=== PATIENT | female | born 1990 | race Caucasian/White ===

== ENCOUNTER 2016-04-29 14:54 | Emergency (ER) | payer MEDICAID, OTHER ==
[~2016-04-29] VITALS: Ht 167.6 cm; Wt 69.0 kg
[~2016-04-29 14:54] MED LIST: PREN1TAB49 PO
[2016-04-29 15:03] VITALS: Ht 167.6 cm; Wt 69.0 kg
[2016-04-29] MEDS ORDERED: IBUP800T25 PO (16:42)
[2016-04-29] MEDS ORDERED: PEN500 PO (16:42)
--- NOTE | 2016-04-29 18:41 | ERD ---
DATE OF SERVICE: HISTORY OF PRESENT ILLNESS: The patient is a 25-year-old female complaining of sore throat for 2 da ys. She states tactile fevers. She states it is worse at night. She has had body aches. She took medication, ibuprofen, yesterday, but no medication today. Has no runny nose. Has no cough. Her son has similar sore throat without cough and runny nose, and he has a fever. She has no chest pain , no shortness of breath, no abdominal pain, no vomiting, no headaches. PAST MEDICAL HISTORY: Denies medical problems. ALLERGIES: Denies allergies to medications. SURGICAL HISTORY: Denies. SOCIAL HISTORY: Denies. REVIEW OF SYSTEMS: A 12-point review of systems was done. Refer to HPI for positives. All other s ystems negative. PHYSICAL EXAMINATION VITAL SIGNS: Temperature is 99.1, pulse is 112, blood pressure 148/62, respiratory rate 18, O2 satu ration 99% on room air. Pain intensity 8/10. GENERAL: The patient is well-appearing, well-nourished, no acute distress. HEENT: Atraumatic. Conjunctivae are pink. Pupils equal, round, and reactive to light. There is no s cleral icterus. Tympanic membranes clear bilaterally. Oropharynx clear. No nystagmus or photophobia . Patient has erythematous tonsils bilaterally with questionable exudate. Uvula midline. No posteri or oropharynx. Positive cervical lymphadenopathy. TMs are within normal limits. No erythema or bu lging. No sinus pressure. Pupils equal, round, and reactive to light. No congestion noted around t he eyes. Extraocular movements intact. NECK: C-spine is soft and supple. There is no meningismus. There is no cervical lymphadenopathy. No JVD. No bruits. No goiter. CHEST: Clear to auscultation bilaterally. There are no rales, wheezes or rhonchi. HEART: Regular rate and rhythm. No murmurs, clicks, rubs or gallops. No S3 or S4. ABDOMEN: Soft, nontender and nondistended. Good bowel sounds. No rebound or guarding. No gross susan tonitis. No gross organomegaly or masses. No Cook sign or McBurney point tenderness. BACK: No midline or flank tenderness. EXTREMITIES: Equal pulses bilaterally. There is no peripheral clubbing, cyanosis or edema. No focal swelling or erythema. Full range of motion. Grossly neurovascularly intact. NEURO: Alert and oriented. Cranial nerves 2-12 intact. Motor strength in all 4 extremities with 5/5 strength. Sensation grossly intact. Normal speech and gait. Babinski negative. DTR 2+ throughout. SKIN: There is no apparent rash or petechia. The skin is warm and dry. HEMATOLOGIC AND LYMPHATIC: There is no evidence of excessive bruising or lymphedema. No gross cervi jordy, axillary, or inguinal lymphadenopathy. PSYCHIATRIC: The patient does not appear anxious or depressed. Normal orientation and judgment. DIAGNOSIS: Sore throat, possible strep. MEDICAL DECISION MAKING: The patient has a high Centor score. She will be treated for strep given that her son has similar symptoms and a fever at home. I have low suspicion for peritonsillar retro pharyngeal abscess. DISCHARGE: The patient is discharged stable. Patient is given a prescription for penicillin and ib uprofen, and told to follow up with primary care within 1-2 days for reevaluation. The patient was told if symptoms progress or worsen, to return to the ER. All other questions answered at time of d ischarge. Discharge summary given at the time of departure. Patient understood and complied with portia haile. Dictated By: OFE WELCH for ALLIE GONZALEZ/KATYA Conf#: [id number] DID#: [id number]
== END 2016-04-29 16:42 | disposition home or self-care (01) ==
LOC: E/R 14:54
DX: J02.9 Acute pharyngitis, unspecified (principal)
CPT/HCPCS: 99283

== ENCOUNTER 2017-02-07 19:29 | Emergency (ER) | payer OTHER ==
[~2017-02-07] VITALS: Ht 162.6 cm; Wt 73.6 kg
[~2017-02-07 19:29] MED LIST changes: +IBUP800T25 PO; +PENI500T PO
[2017-02-07 19:37] VITALS: Ht 162.6 cm; Wt 73.6 kg
--- NOTE | 2017-02-07 22:22 | RADRPT ---
PROCEDURE: XR Chest. CLINICAL INDICATION: Cough TECHNIQUE: Single frontal chest x-ray. COMPARISON: None. FINDINGS: The lungs are clear. No focal opacification is seen. The cardiomediastinal silhouette is unremarka ble. The osseous structures are unremarkable. IMPRESSION: 1. There is no acute cardiopulmonary process. RPTAT: PP .Inderjit Rivera MD, MD Date Time Electronically viewed and signed by .Inderjit Rivera MD, on 02/07/2017 22:22 .B/
[2017-02-07] MEDS ORDERED: LORA-186 PO (22:25)
[2017-02-07] MEDS ORDERED: ACET325T33 PO (22:39)
--- NOTE | 2017-02-07 23:08 | ERD ---
ER Documentation Chief Complaint Chief Complaint cough x 1 month HPI A 26-year-old female presenting to emergency department complaining of cough on and off for the past month. Patient presents today stating that she feels like she has chest tightness for the past couple days. She denies any shortness of breath, chest pain. She denies having any medications for this. Denies fevers ROS All systems reviewed and are negative except as per history of present illness. Medications Home Meds Active Scripts Acetaminophen* (Tylenol*) 325 Mg Tablet, 1 TAB PO Q6 Y for PAIN AND OR ELEVATED TEMP, #20 TAB Prov:JOSE ANGEL DEL CID PA-C 02/07/17 Loratadine* (Claritin*) 10 Mg Tablet, 10 MG PO DAILY, #20 TAB Prov:JOSE ANGEL DEL CID PA-C 02/07/17 Ibuprofen* (Motrin*) 800 Mg Tab, 800 MG PO Q6, #30 TAB Prov:CARL DOMINGUEZ PA-C 04/29/16 Penicillin V Potassium* (Penicillin V K*) 500 Mg Tab, 500 MG PO QID for 7 Days, TAB Prov:CARL DOMINGUEZ PA-C 04/29/16 Reported Medications Vits W-Ca,Fe,Fa(<1MG) () 1 Tab Tablet, PO DAILY 03/19/11 Allergies Allergies: Coded Allergies: No Known Allergy (Unverified , 03/19/11) PMhx/Soc History of Surgery: No Anesthesia Reaction: No Hx Neurological Disorder: No Hx Respiratory Disorders: No Hx Cardiac Disorders: No Hx Psychiatric Problems: No Hx Miscellaneous Medical Probl: No Hx Alcohol Use: No Hx Substance Use: No Hx Tobacco Use: No Smoking Status: Never smoker Physical Exam Vitals Vital Signs Date Time Temp Pulse Resp B/P Pulse Ox O2 Delivery O2 Flow Rate FiO2 02/07/17 19:37 98.0 84 20 115/65 99 Physical Exam Const: Well-developed well-nourished no acute distress Head: Atraumatic Eyes: Normal Conjunctiva ENT: Normal External Ears, Nose and Mouth. Neck: Full range of motion..~ No meningismus. Resp: Clear to auscultation bilaterally Cardio: Regular rate and rhythm, no murmurs Abd: Soft, non tender, non distended. Normal bowel sounds Skin: No petechiae or rashes Back: No midline or flank tenderness Ext: No cyanosis, or edema Neur: Awake and alert Psych: Normal Mood and Affect Procedures/MDM 26-year-old female presents to the ED with cough on and off for the past month with chest tightness which is likely due to viral upper respiratory infection. Chest x-ray did not show any evidence of infiltrates pneumothorax pleural effusion. EKG was unremarkable. Patient is well appearing to be discharged home to follow-up with primary care physician. No evidence of ACS or other acute problem cardiopulmonary conditions. Tylenol and Claritin was provided EKG: read and signed off by myself and Dr Robles Rate/Rhythm: Normal Sinus Rhythm 75bpm QRS, ST, T-waves: No changes consistent w/ acute ischemia Impression: No evidence of ischemia or arrhythmia]\ Departure Diagnosis: Primary Impression: Cough Condition: Stable Patient Instructions: Chest Pain, Noncardiac , Uri, Viral, No Abx (Adult) Referrals: [facility] (PCP) Additional Instructions: FOLLOW UP WITH YOUR PRIMARY CARE PHYSICIAN TOMORROW.Return to this facility if you are not improving as expected. Take all medicines as directed. Return to this facility if you are not improving as expected. JOSE ANGEL DEL CID PA-C Feb 07, 2017 23:08
== END 2017-02-07 23:27 | disposition home or self-care (01) ==
LOC: FTE 19:29
DX: R05 Cough (principal); R07.89 Other chest pain
CPT/HCPCS: 71010; 93005; Z7502

== ENCOUNTER 2017-08-28 10:26 | Emergency (ER) | END 2017-08-28 12:11 | disposition home or self-care (01) ==